=== PATIENT | male | born 1985 | race Hispanic/Latino ===

== ENCOUNTER 2017-07-27 20:47 | Emergency (ER) | payer SELFPAY ==
[2017-07-27] MEDS ORDERED: GENTAMICIN 0.3% OPTH DROP 5ML ONE (21:45)
[2017-07-27] MEDS ORDERED: TETRACAINE HCL 0.5% 2ML OPTH ONE (21:45)
[2017-07-27] MEDS ORDERED: FLUORESCEIN SODIUM 0.6 MG/WRAP ONE (21:45)
--- NOTE | 2017-07-27 22:26 | EDPHYS ---
Physician Documentation [facility] Name: Sid Felton Age: 31 yrs Sex: Male : 1985 Arrival Date: 07/27/2017 Time: 20:47 Bed 9 Private MD: ED Physician Austin Dias HPI: 07/27 21:45 This 31 yrs old Male presents to ER via Ambulatory with complaints of Eye cp Problem, Redness of Eye. 21:45 The patient is experiencing matting or discharge, pain, redness, to both eyes. Onset: cp The symptoms/episode began/occurred 3 day(s) ago. 21:45 Duration: the symptoms are continuous. Associated signs and symptoms: Pertinent cp positives: sorethroat. 21:45 Patient does not utilize any form of vision correction. Severity of symptoms: in the cp emergency department the symptoms are unchanged. Patient reports he has been using OTC clear eyes and taking Amoxicillin for sore throat. Historical: - Allergies: 21:06 No Known Allergies; bb - Home Meds: 21:06 None [Active]; bb - PMHx: 21:06 Asthma; bb - PSHx: 21:06 None; bb - Immunization history:: Adult Immunizations up to date. - Social history:: Smoking status: Patient uses tobacco products, denies chronic smoking, but will smoke occasionally, Patient uses street drugs, marijuana, Patient/guardian denies using alcohol. - Ebola Screening: : No symptoms or risks identified at this time. ROS: 21:50 Constitutional: Negative for body aches, chills, fever, poor PO intake. cp 21:50 Eyes: Positive for discharge, redness, Negative for foreign body sensation, visual cp disturbance. 21:50 ENT: Positive for sore throat, Negative for drainage from ear(s), ear pain, rhinorrhea, difficulty swallowing, difficulty handling secretions. 21:50 Neck: Negative for pain with movement, pain at rest, stiffness, swollen nodes, bony tenderness. 21:50 Cardiovascular: Negative for chest pain, edema, palpitations. 21:50 Respiratory: Negative for cough, shortness of breath, wheezing. 21:50 Abdomen/GI: Negative for abdominal pain, nausea, vomiting, and diarrhea, constipation. 21:50 Skin: Negative for cellulitis, rash. 21:50 Neuro: Negative for altered mental status, headache, weakness. 21:50 All other systems are negative. Exam: 22:00 Constitutional: The patient appears in no acute distress, alert, awake, non-toxic, well cp developed, well nourished. 22:00 Head/Face: Normocephalic, atraumatic. cp 22:00 Eyes: Periorbital structures: appear normal, Pupils: equal, round, and reactive to light and accomodation, Extraocular movements: intact throughout, Conjunctiva: injected, bilaterally, Corneas: abrasion, is not appreciated, foreign body, is not appreciated, a fluorescein strip employed to appreciate the findings, Lids and lashes: drainage, from the left eye, edema, is not appreciated. 22:00 ENT: External ear(s): are unremarkable, Ear canal(s): are normal, clear, TM's: bulging, is not appreciated, bilaterally, dullness, bilaterally, erythema, is not appreciated, bilaterally, Nose: is normal, Mouth: Lips: moist, Oral mucosa: moist, Posterior pharynx: Airway: no evidence of obstruction, patent, Tonsils: no enlargement, no exudate, Uvula: midline, swelling, is not appreciated, erythema, that is mild, Voice: is normal. 22:00 Neck: ROM/movement: is normal, is supple, without pain, no range of motions limitations, no meningismus, no nuchal rigidity, Lymph nodes: no appreciated lymphadenopathy. 22:00 Chest/axilla: Inspection: normal, Palpation: is normal, no crepitus, no tenderness. 22:00 Cardiovascular: Rate: tachycardic, Rhythm: regular. 22:00 Respiratory: the patient does not display signs of respiratory distress, Respirations: normal, no use of accessory muscles, no retractions, no splinting, no tachypnea, labored breathing, is not present, Breath sounds: are clear throughout, no decreased breath sounds, no stridor, no wheezing. 22:00 Abdomen/GI: Exam negative for discomfort, distension, guarding, Inspection: abdomen appears normal. 22:00 Skin: cellulitis, is not appreciated, no rash present. Vital Signs: 21:06 BP 161 / 84; Pulse 111; Resp 18 S; Temp 96.6(O); Pulse Ox 97% on R/A; Weight 108.86 kg bb (R); Height 5 ft. 8 in. (172.72 cm) (R); Pain 8/10; 21:06 Body Mass Index 36.49 (108.86 kg, 172.72 cm) bb Visual Acuity: 21:06 Left Eye Visual acuity 20/40, Pupil size 4 mm, ; Right Eye Visual acuity 20/30, Pupil bb size 4 mm, ; Both Eyes Visual acuity 20/30; Without Lenses; MDM: 21:31 Patient medically screened. cp 22:00 Differential diagnosis: Corneal abrasion of Corneal ulcer of Foreign body in Acute cp iritis of 22:25 Data reviewed: vital signs, nurses notes. cp 22:25 Counseling: I had a detailed discussion with the patient and/or guardian regarding: the cp historical points, exam findings, and any diagnostic results supporting the discharge/admit diagnosis, the need for outpatient follow up, an opthalmologist, to return to the emergency department if symptoms worsen or persist or if there are any questions or concerns that arise at home. Response to treatment: the patient's symptoms have mildly improved after treatment, and as a result, I will discharge patient. 07/27 21:39 Order name: Visual Acuity; Complete Time: 21:40 cp 07/27 21:39 Order name: Eye Tray; Complete Time: 21:47 cp 07/27 21:39 Order name: Fluoresene Opth strip; Complete Time: 21:47 cp Administered Medications: 21:47 Drug: Tetracaine Drops 0.5 % 1 drops Route: Ophthalmic; Site: both eyes; ea 22:34 Follow up: Response: No adverse reaction bb 22:32 Drug: Gentamicin Drops 0.3 % 2 drops Route: Ophthalmic; Site: both eyes; bb 22:34 Follow up: Response: No adverse reaction bb Disposition: 23:00 Chart complete. cp 07/28 08:00 Co-signature as Attending Physician, Austin Dias MD Available for consultation at ps1 all times.. Disposition: 07/27/17 22:26 Discharged to Home. Impression: Conjunctivitis - Bilateral, Acute pharyngitis. - Condition is Stable. - Discharge Instructions: Conjunctivitis (Viral and Bacterial), Pharyngitis. - Prescriptions for Amoxicillin 875 mg Oral Tablet - take 1 tablet by ORAL route every 12 hours for 10 days; 20 tablet. Gentamicin 0.3 % Ophthalmic Drops - instill 1 drop by OPHTHALMIC route every 4 hours for 7 days instill drops every 4 hours while awake; 1 bottle. - Medication Reconciliation Form, Thank You Letter, Antibiotic Education, Prescription Opioid Use form. - Follow up: Froy Lemus MD; When: 48 Hours; Reason: Recheck today's complaints. - Problem is new. - Symptoms have improved. Signatures: Monik Blount RN RN bb Isidro Humphreys PA PA cp Antunez, Elena, RN RN Austin Aden MD MD ps1 Corrections: (The following items were deleted from the chart) 07/27 22:35 22:26 07/27/2017 22:26 Discharged to Home. Impression: Conjunctivitis - Bilateral; bb Acute pharyngitis. Condition is Stable. Forms are Medication Reconciliation Form, Thank You Letter, Antibiotic Education, Prescription Opioid Use. Follow up: Froy Lemus; When: 48 Hours; Reason: Recheck today's complaints. Problem is new. Symptoms have improved. cp
--- NOTE | 2017-07-27 22:26 | ER ---
Nurse's Notes [facility] Name: Sid Felton Age: 31 yrs Sex: Male : 1985 Arrival Date: 07/27/2017 Time: 20:47 Bed 9 Private MD: Diagnosis: Conjunctivitis-Bilateral;Acute pharyngitis Presentation: 07/27 20:59 Presenting complaint: Patient states: he has been having redness to bilateral eyes x 4 bb days his son was recently diagnosed with some bacterial eye infection, pt was using some of his drops but his eyes are not getting any better. Transition of care: patient was not received from another setting of care. Onset of symptoms was July 23, 2017. Risk Assessment: Do you want to hurt yourself or someone else? Patient reports no desire to harm self or others. Initial Sepsis Screen: Does the patient meet any 2 criteria? No. Patient's initial sepsis screen is negative. Does the patient have a suspected source of infection? No. Patient's initial sepsis screen is negative. Care prior to arrival: None. 20:59 Method Of Arrival: Ambulatory bb 20:59 Acuity: PARAM 4 bb Historical: - Allergies: 21:06 No Known Allergies; bb - Home Meds: 21:06 None [Active]; bb - PMHx: 21:06 Asthma; bb - PSHx: 21:06 None; bb - Immunization history:: Adult Immunizations up to date. - Social history:: Smoking status: Patient uses tobacco products, denies chronic smoking, but will smoke occasionally, Patient uses street drugs, marijuana, Patient/guardian denies using alcohol. - Ebola Screening: : No symptoms or risks identified at this time. Screenin:13 Abuse screen: Denies threats or abuse. Nutritional screening: No deficits noted. ea Tuberculosis screening: No symptoms or risk factors identified. Fall Risk None identified. Assessment: 21:10 General: Appears uncomfortable, Behavior is appropriate for age. Pain: Complains of ea pain in right eye and left eye Quality of pain is described as burning. Neuro: Level of Consciousness is awake, alert, obeys commands, Oriented to person, place, time, situation. Cardiovascular: Patient's skin is warm and dry. Respiratory: Airway is patent Respiratory effort is even, unlabored, Respiratory pattern is regular, symmetrical. GI: No signs and/or symptoms were reported involving the gastrointestinal system. : No signs and/or symptoms were reported regarding the genitourinary system. EENT: Eyes are tearing on outer aspect of conjuctiva of right eye, inner aspect of conjuctiva of right eye, outer aspect of conjuctiva of left eye and inner aspect of conjunctiva of left eye Sclera/Cornea are reddened in outer aspect of conjuctiva of right eye, inner aspect of conjuctiva of right eye, outer aspect of conjuctiva of left eye and inner aspect of conjunctiva of left eye Reports blurred vision Pt reports reji blurred peripheral vision. Derm: Skin is dry, Skin is normal, Skin temperature is warm. Musculoskeletal: Circulation, motion, and sensation intact. 22:33 Reassessment: Patient is alert, oriented x 3, equal unlabored respirations, skin bb warm/dry/pink. pt verbalized understanding of and agrees to plan of care discharge instructions given pt ambulated with steady gait to exit. Vital Signs: 21:06 BP 161 / 84; Pulse 111; Resp 18 S; Temp 96.6(O); Pulse Ox 97% on R/A; Weight 108.86 kg bb (R); Height 5 ft. 8 in. (172.72 cm) (R); Pain 8/10; 21:06 Body Mass Index 36.49 (108.86 kg, 172.72 cm) bb Visual Acuity: 21:06 Left Eye Visual acuity 20/40, Pupil size 4 mm, ; Right Eye Visual acuity 20/30, Pupil bb size 4 mm, ; Both Eyes Visual acuity 20/30; Without Lenses; ED Course: 20:47 Patient arrived in ED. ds1 21:05 Triage completed. bb 21:06 Arm band placed on Patient placed in an exam room, on a stretcher. bb 21:08 Bia Davison, ROGE is Primary Nurse. ea 21:13 Patient has correct armband on for positive identification. Call light in reach. ea 21:31 Isidro Humphreys PA is PHCP. cp 21:31 Austin Dias MD is Attending Physician. cp 22:24 Froy Lemus MD is Referral Physician. cp 22:34 No provider procedures requiring assistance completed. Patient did not have IV access bb during this emergency room visit. Administered Medications: 21:47 Drug: Tetracaine Drops 0.5 % 1 drops Route: Ophthalmic; Site: both eyes; ea 22:34 Follow up: Response: No adverse reaction bb 22:32 Drug: Gentamicin Drops 0.3 % 2 drops Route: Ophthalmic; Site: both eyes; bb 22:34 Follow up: Response: No adverse reaction bb Outcome: 22:26 Discharge ordered by MD. cp 22:34 Discharged to home ambulatory. bb 22:34 Condition: stable 22:34 Discharge instructions given to patient, Instructed on discharge instructions, follow up and referral plans. medication usage, Demonstrated understanding of instructions, follow-up care, medications, Prescriptions given X 2. 22:35 Patient left the ED. bb Signatures: Sydney Akers ds1 Monik Blount RN RN bb Isidro Humphreys PA PA cp Antunez, Elena, RN RN ea Corrections: (The following items were deleted from the chart) 21:13 21:10 EENT: Eyes are tearing on outer aspect of conjuctiva of right eye, inner aspect ea of conjuctiva of right eye, outer aspect of conjuctiva of left eye and inner aspect of conjunctiva of left eye Sclera/Cornea are reddened in outer aspect of conjuctiva of right eye, inner aspect of conjuctiva of right eye, outer aspect of conjuctiva of left eye and inner aspect of conjunctiva of left eye ea
== END 2017-07-27 22:35 | disposition home or self-care (01) ==
LOC: ER 20:47
DX: H10.89 Other conjunctivitis (principal); J02.9 Acute pharyngitis, unspecified; J45.909 Unspecified asthma, uncomplicated; Z72.0 Tobacco use
CPT/HCPCS: 99283

== ENCOUNTER 2018-01-11 20:49 | Emergency (ER) | payer SELFPAY ==
--- NOTE | 2018-01-11 22:12 | RAD REPORT ---
EXAM DESCRIPTION: USExtremjuan Venous Uni Ltd01/11/2018 9:57 pm CLINICAL HISTORY: Right leg pain and swelling. COMPARISON: None. FINDINGS: Right common femoral, superficial femoral, popliteal and right posterior tibial veins are compressible and demonstrate augmentation. Doppler demonstrates good flow. IMPRESSION: No evidence of deep venous thrombosis involving the right lower extremity.
[2018-01-11] MEDS ORDERED: CLINDAMYCIN HCL 150 MG CAP ONE (22:52)
[2018-01-11] MEDS ORDERED: KETOROLAC 30 MG/ML INJ ONE (22:52)
[2018-01-11] MEDS ORDERED: VANCOMYCIN 1 GM/250 ML BAG ONE (22:52)
[2018-01-11] MEDS ORDERED: MORPHINE 4 MG/ML SYR ONE (22:57)
[2018-01-11 23:12] LABS: Absolute Lymphocytes (CBC) 3.1 K/uL (0.7-4.9); Absolute Monocytes 0.9 K/uL (0.1-1.3); Absolute Neutrophil 9.6 K/uL (1.8-8.0); Basophils % 0.6 % (0-1.3); Eosinophils % 1.3 % (0-4.4); Hematocrit 47.3 % (39.6-49.0); Lymphocytes % 22.3 % (15.3-44.8); MCH 30.9 pg (27.0-35.0); MCV 88.3 fL (80-100); MPV 9.8 fL (7.6-11.3); Monocytes % 6.7 % (3.3-12.3); RBC Red Blood Cell Count 5.36 M/uL (4.33-5.43)
[2018-01-11 23:28] LABS: Potassium 3.9 mmol/L (3.5-5.1)
--- NOTE | 2018-01-11 23:55 | ER ---
Nurse's Notes [facility] Name: Sid Felton Age: 32 yrs Sex: Male : 1985 Arrival Date: 01/11/2018 Time: 20:52 Bed 13 Private MD: Diagnosis: Cellulitis of right lower limb Presentation: 01/11 20:56 Presenting complaint: Patient states: right lower leg pain with redness and swelling X2 ak1 days. Transition of care: patient was not received from another setting of care. Onset of symptoms is unknown. Risk Assessment: Do you want to hurt yourself or someone else? Patient reports no desire to harm self or others. Initial Sepsis Screen: Does the patient meet any 2 criteria? No. Patient's initial sepsis screen is negative. Does the patient have a suspected source of infection? No. Patient's initial sepsis screen is negative. Care prior to arrival: None. 20:56 Method Of Arrival: Ambulatory ak1 20:56 Acuity: PARAM 4 ak1 Triage Assessment: 20:57 General: Appears uncomfortable, Behavior is calm, cooperative. ak1 Historical: - Allergies: 20:57 No Known Allergies; ak1 - Home Meds: 20:57 None [Active]; ak1 - PMHx: 20:57 Asthma; ak1 - PSHx: 20:57 None; ak1 - Immunization history:: Adult Immunizations unknown. - Social history:: Smoking status: Patient/guardian denies using tobacco. - Ebola Screening: : No symptoms or risks identified at this time. Screenin:58 Abuse screen: Denies threats or abuse. Denies injuries from another. Nutritional ak1 screening: No deficits noted. Tuberculosis screening: No symptoms or risk factors identified. Fall Risk None identified. Assessment: 21:05 Pain: Complains of pain in right leg and anterior aspect of right ankle and right basilio. cc3 22:30 Reassessment: Patient appears in no apparent distress at this time. Patient and/or cc3 family updated on plan of care and expected duration. Pain level reassessed. Patient is alert, oriented x 3, equal unlabored respirations, skin warm/dry/pink. 23:43 Reassessment: Patient appears in no apparent distress at this time. Patient and/or cc3 family updated on plan of care and expected duration. Pain level reassessed. Patient is alert, oriented x 3, equal unlabored respirations, skin warm/dry/pink. 01/12 00:05 Reassessment: Patient appears in no apparent distress at this time. Patient and/or cc3 family updated on plan of care and expected duration. Pain level reassessed. Patient is alert, oriented x 3, equal unlabored respirations, skin warm/dry/pink. COSMETICS DEMONSTRATOR Katina ordered discharge for the patient but after his vancomycin infusion. 01:15 Reassessment: Patient appears in no apparent distress at this time. Patient and/or cc3 family updated on plan of care and expected duration. Pain level reassessed. Patient is alert, oriented x 3, equal unlabored respirations, skin warm/dry/pink. Vancomycin infusion completed, COSMETICS DEMONSTRATOR Katina discharged the patient home with prescriptions given. IV cannula removed and patient left ER vitally stable and ambulatory. Vital Signs: 01/11 20:57 BP 138 / 81; Pulse 108; Resp 18; Temp 99(TE); Pulse Ox 98% on R/A; Weight 102.06 kg ak1 (R); Height 5 ft. 9 in. (175.26 cm) (R); Pain 10/10; 21:45 BP 155 / 82; Pulse 101; Resp 19 S; Pulse Ox 97% on R/A; cc3 22:30 BP 147 / 85; Pulse 101; Resp 18 S; Pulse Ox 97% on R/A; cc3 23:45 BP 146 / 84; Pulse 92; Resp 17 S; Pulse Ox 96% on R/A; cc3 01/12 00:50 BP 143 / 86; Pulse 90; Resp 17 S; Pulse Ox 97% on R/A; cc3 01/11 20:57 Body Mass Index 33.23 (102.06 kg, 175.26 cm) ak1 ED Course: 01/11 20:52 Patient arrived in ED. ds1 20:57 Triage completed. ak1 20:57 Arm band placed on Patient placed in an exam room, on a stretcher, Patient notified of ak1 wait time. 20:58 Patient has correct armband on for positive identification. ak1 21:03 Lucia Wilson is Primary Nurse. cc3 21:06 Katina Phan FNP-C [facility]. snw 21:06 Homer Beckford MD is Attending Physician. snw 21:51 US Extremity Venous Unilateral Ltd In Process Unspecified. EDMS 01/12 00:39 Inserted saline lock: 20 gauge in right antecubital area, using aseptic technique. oe Blood collected. 01:15 No provider procedures requiring assistance completed. IV discontinued, intact, cc3 bleeding controlled, No redness/swelling at site. Pressure dressing applied. Administered Medications: 01/11 22:45 Drug: Clindamycin 300 mg Route: PO; cc3 23:00 Follow up: Response: No adverse reaction cc3 22:55 Drug: TORadol 30 mg Route: IVP; Site: right antecubital; cc3 23:30 Follow up: Response: No adverse reaction; Pain is decreased cc3 23:00 Drug: morphine 4 mg Route: IVP; Site: right antecubital; cc3 23:30 Follow up: Response: No adverse reaction; Pain is decreased cc3 23:05 Drug: vancoMYCIN 1 grams Route: IVPB; Infused Over: 2 hrs; Site: right antecubital; cc3 01/12 01:15 Follow up: Response: No adverse reaction; IV Status: Completed infusion; IV Intake: cc3 250ml Intake: 01:15 IV: 250ml; Total: 250ml. cc3 Outcome: 01/11 23:54 Discharge ordered by . snw 01/12 01:15 Discharged to home ambulatory. cc3 Condition: stable Discharge instructions given to patient, Instructed on discharge instructions, follow up and referral plans. medication usage, Demonstrated understanding of instructions, follow-up care, medications, Prescriptions given X 2. 01:22 Patient left the ED. cc3 Signatures: Dispatcher [employer] EDSC Katina Phan, DIE MAINTENANCE TECHNICIAN-C DIE MAINTENANCE TECHNICIAN-CsnSydney Rubin dsKami Masters, RN RN ak1 Emanuel Martin Charlene cc3
--- NOTE | 2018-01-11 23:55 | EDPHYS ---
Physician Documentation [facility] Name: Sid Felton Age: 32 yrs Sex: Male : 1985 Arrival Date: 01/11/2018 Time: 20:52 Bed 13 Private MD: ED Physician Homer Beckford HPI: 01/11 22:28 This 32 yrs old Male presents to ER via Ambulatory with complaints of Foot snw Swelling -, Leg Swelling. 22:28 The patient presents with swelling, tenderness, erythema. The complaints affect the snw right basilio and anterior aspect of right ankle. Context: The problem was sustained at an unknown site, resulted from an unknown cause, the patient can partially bear weight, with pain, Problem is a result from a previous injury: No. Onset: The symptoms/episode began/occurred suddenly, 3 day(s) ago, and became worse today. Associated signs and symptoms: Pertinent positives: swelling, erythema. Treatment prior to arrival includes: no previous treatment. Severity of symptoms: At their worst the symptoms were moderate. The patient has not experienced similar symptoms in the past. The patient has not recently seen a physician. tetanus up to date. Historical: - Allergies: 20:57 No Known Allergies; ak1 - Home Meds: 20:57 None [Active]; ak1 - PMHx: 20:57 Asthma; ak1 - PSHx: 20:57 None; ak1 - Immunization history:: Adult Immunizations unknown. - Social history:: Smoking status: Patient/guardian denies using tobacco. - Ebola Screening: : No symptoms or risks identified at this time. ROS: 22:27 Constitutional: Negative for fever, chills, and weight loss, Eyes: Negative for injury, snw pain, redness, and discharge, ENT: Negative for injury, pain, and discharge, Neck: Negative for injury, pain, and swelling, Cardiovascular: Negative for chest pain, palpitations, and edema, Respiratory: Negative for shortness of breath, cough, wheezing, and pleuritic chest pain, Abdomen/GI: Negative for abdominal pain, nausea, vomiting, diarrhea, and constipation, Back: Negative for injury and pain, : Negative for injury, bleeding, discharge, and swelling, MS/Extremity: Negative for injury and deformity, Neuro: Negative for headache, weakness, numbness, tingling, and seizure, Psych: Negative for depression, anxiety, suicide ideation, homicidal ideation, and hallucinations. 22:27 Skin: Positive for swelling, tenderness, erythema. Exam: 22:25 Constitutional: This is a well developed, well nourished patient who is awake, alert, snw and in no acute distress. Head/Face: Normocephalic, atraumatic. Eyes: Pupils equal round and reactive to light, extra-ocular motions intact. Lids and lashes normal. Conjunctiva and sclera are non-icteric and not injected. Cornea within normal limits. Periorbital areas with no swelling, redness, or edema. ENT: Nares patent. No nasal discharge, no septal abnormalities noted. Tympanic membranes are normal and external auditory canals are clear. Oropharynx with no redness, swelling, or masses, exudates, or evidence of obstruction, uvula midline. Mucous membranes moist. Neck: Trachea midline, no thyromegaly or masses palpated, and no cervical lymphadenopathy. Supple, full range of motion without nuchal rigidity, or vertebral point tenderness. No Meningismus. Chest/axilla: Normal chest wall appearance and motion. Nontender with no deformity. No lesions are appreciated. Cardiovascular: Regular rate and rhythm with a normal S1 and S2. No gallops, murmurs, or rubs. Normal PMI, no JVD. No pulse deficits. Respiratory: Lungs have equal breath sounds bilaterally, clear to auscultation and percussion. No rales, rhonchi or wheezes noted. No increased work of breathing, no retractions or nasal flaring. Abdomen/GI: Soft, non-tender, with normal bowel sounds. No distension or tympany. No guarding or rebound. No evidence of tenderness throughout. Back: No spinal tenderness. No costovertebral tenderness. Full range of motion. MS/ Extremity: Pulses equal, no cyanosis. Neurovascular intact. Full, normal range of motion. Neuro: Awake and alert, GCS 15, oriented to person, place, time, and situation. Cranial nerves II-XII grossly intact. Motor strength 5/5 in all extremities. Sensory grossly intact. Cerebellar exam normal. Normal gait. Psych: Awake, alert, with orientation to person, place and time. Behavior, mood, and affect are within normal limits. 22:25 Skin: Appearance: normal except for affected area, cellulitis, that is moderate, well demarcated, on the right basilio and anterior aspect of right ankle. Vital Signs: 20:57 BP 138 / 81; Pulse 108; Resp 18; Temp 99(TE); Pulse Ox 98% on R/A; Weight 102.06 kg ak1 (R); Height 5 ft. 9 in. (175.26 cm) (R); Pain 10/10; 21:45 BP 155 / 82; Pulse 101; Resp 19 S; Pulse Ox 97% on R/A; cc3 22:30 BP 147 / 85; Pulse 101; Resp 18 S; Pulse Ox 97% on R/A; cc3 23:45 BP 146 / 84; Pulse 92; Resp 17 S; Pulse Ox 96% on R/A; cc3 01/12 00:50 BP 143 / 86; Pulse 90; Resp 17 S; Pulse Ox 97% on R/A; cc3 01/11 20:57 Body Mass Index 33.23 (102.06 kg, 175.26 cm) ak1 MDM: 01/11 21:11 Patient medically screened. snw 01/12 00:09 Data reviewed: vital signs, nurses notes, lab test result(s), radiologic studies, snw ultrasound. Data interpreted: Pulse oximetry: on room air is 96 %. Interpretation: acceptable. Counseling: I had a detailed discussion with the patient and/or guardian regarding: the historical points, exam findings, and any diagnostic results supporting the discharge/admit diagnosis, the presence of at least one elevated blood pressure reading (>120/80) during this emergency department visit, lab results, radiology results, the need for outpatient follow up, to return to the emergency department if symptoms worsen or persist or if there are any questions or concerns that arise at home. Special discussion: I have referred the patient to see his PCP for further evaluation of high blood pressure. Based on the history and exam findings, there is no indication for further emergent testing or inpatient evaluation. 01/11 22:27 Order name: CBC with Diff; Complete Time: 23:48 snw 01/11 22:27 Order name: Chem 7; Complete Time: 23:48 snw 01/11 21:07 Order name: US Extremity Venous Unilateral Ltd; Complete Time: 22:16 snw 01/11 22:27 Order name: Blood Culture Adult (2) snw 01/11 22:27 Order name: Lactate; Complete Time: 23:48 snw 01/11 22:27 Order name: Procalcitonin; Complete Time: 01:06 snw 01/11 22:27 Order name: SL; Complete Time: 23:47 snw Administered Medications: 01/11 22:45 Drug: Clindamycin 300 mg Route: PO; cc3 23:00 Follow up: Response: No adverse reaction cc3 22:55 Drug: TORadol 30 mg Route: IVP; Site: right antecubital; cc3 23:30 Follow up: Response: No adverse reaction; Pain is decreased cc3 23:00 Drug: morphine 4 mg Route: IVP; Site: right antecubital; cc3 23:30 Follow up: Response: No adverse reaction; Pain is decreased cc3 23:05 Drug: vancoMYCIN 1 grams Route: IVPB; Infused Over: 2 hrs; Site: right antecubital; cc3 01/12 01:15 Follow up: Response: No adverse reaction; IV Status: Completed infusion; IV Intake: cc3 250ml Disposition: 01/11/18 23:54 Discharged to Home. Impression: Cellulitis of right lower limb. - Condition is Stable. - Discharge Instructions: Cellulitis, Adult, Hypertension, Heat Therapy. - Prescriptions for Clindamycin HCl 300 mg Oral Capsule - take 1 capsule by ORAL route every 6 hours for 10 days; 40 capsule. Diclofenac Sodium 75 mg Oral Tablet Sustained Release - take 1 tablet by ORAL route 2 times per day; 30 tablet. - Work release form, Medication Reconciliation Form, Thank You Letter, Antibiotic Education, Prescription Opioid Use form. - Follow up: Private Physician; When: 2 - 3 days; Reason: Recheck today's complaints, Continuance of care, Re-evaluation by your physician. Follow up: Emergency Department; When: As needed; Reason: Worsening of condition. Addendum: 01/13/2018 19:13 Co-signature as Attending Physician, Homer Beckford MD. g s Signatures: Dispatcher [employer] EDMS Katina Phan, KRISHAN-C BUS PERSON-Csnw Kami Brooks, RN RN ak1 Homer Beckford MD MD gs Cordel, Charlene cc3 Corrections: (The following items were deleted from the chart) 01/12 01:22 01/11 23:54 01/11/2018 23:54 Discharged to Home. Impression: Cellulitis of right lower cc3 limb. Condition is Stable. Forms are Medication Reconciliation Form, Thank You Letter, Antibiotic Education, Prescription Opioid Use. Follow up: Private Physician; When: 2 - 3 days; Reason: Recheck today's complaints, Continuance of care, Re-evaluation by your physician. Follow up: Emergency Department; When: As needed; Reason: Worsening of condition. snw
== END 2018-01-12 01:22 | disposition home or self-care (01) ==
LOC: ER 20:49
DX: L03.115 Cellulitis of right lower limb (principal)
CPT/HCPCS: 36415; 80048; 83605; 84145; 85025; 87040; 93971; 96365; 96366; 96375; 99284; J3370

== ENCOUNTER 2023-11-30 22:14 | Emergency (ER) | payer SELFPAY ==
--- NOTE | 2023-11-30 22:35 | EDPHYS ---
Physician Documentation [facility] Name: Sid Felton Age: 37 yrs Sex: Male : 1985 Arrival Date: 11/30/2023 Time: 22:14 Bed IW2 Private MD: ED Physician Shreyas Toth HPI: 11/29 23:13 This 37 yrs old Male presents to ER via Unassigned with complaints of Toe kb Injury. 23:13 Pt is a 37 year old male who presents for ingrown nail that he tried to remove at home kb last night. States it is red, swollen, draining and painful today so he came in for evaluation. Denies fever. . ROS: 23:13 Constitutional: As per HPI kb Exam: 23:13 Constitutional: This is a well developed, well nourished patient who is awake, alert, kb and in no acute distress. Head/Face: Normocephalic, atraumatic. ENT: Moist Mucous membranes Cardiovascular: Regular rate Respiratory: Respirations even and unlabored. No increased work of breathing. Talking in full sentences Neuro: Awake and alert, GCS 15, oriented to person, place, time, and situation. 23:13 Musculoskeletal/extremity: Nails: ingrown nail and paronychia to right great toe, MDM: 22:20 Medical Screening Exam initiated kb 23:13 Differential diagnosis: ingrown nail, paronychia, abscess, cellulitis. Data reviewed: kb vital signs, nurses notes. Counseling: I had a detailed discussion with the patient and/or guardian regarding the historical points, exam findings, and any diagnostic results supporting the discharge/admit diagnosis, the need for outpatient follow up, a business employment specialist, to return to the emergency department if symptoms worsen or persist or if there are any questions or concerns that arise at home. ED course: Pt educated on need for antibiotics and follow up with podiatry. Educated on warm compresses/soaks for drainage. Verbal understanding received. I went to the lobby to talk to another patient and pt stormed out of triage upset that his ingrown nail was not going to be removed tonight and states he doesn't want any other treatment. . Administered Medications: 23:06 Not Given (Patient Eloped): hydrocodone-acetaminophen(7.5 mg-325 mg) 1 tabs PO once lg3 23:07 Not Given (Patient Eloped): trimethoprim-sulfamethoxazole(160 mg-800 mg (ds) 1 tablet lg3 PO once Disposition: 11/30 04:56 Co-signature as Attending Physician, Shreyas Toth MD I agree with the assessment sp4 and plan of care. I reviewed the patient's care provided by the Advanced Practice Provider and agree with the diagnosis and treatment plan. Disposition Summary: 11/30/23 22:34 Discharge Ordered Notes: Location: Home kb Condition: Stable kb Diagnosis - Ingrowing nail kb - Paronychia kb Followup: kb - With: Emergency Department - When: As needed - Reason: Worsening of condition Followup: kb - With: Private Physician - When: 2 - 3 days - Reason: Recheck today's complaints, Continuance of care, Re-evaluation by your physician Discharge Instructions: - Discharge Summary Sheet kb - Ingrown Toenail kb - Paronychia, [id number] kb Forms: - Medication Reconciliation Form kb - Antibiotic Education kb - Prescription Opioid Use kb - Patient Portal Instructions kb - Leadership Thank You Letter kb Prescriptions: - Bactrim DS 800-160 mg Oral Tablet - take 1 tablet ORAL route every 12 hours for 10 days; 20 tablet; Refills: 0, kb Product Selection Permitted Signatures: Tanya Barrett FNP-C FNP-Ckb Able, Lacie, RN RN lg3 Shreyas Toth MD MD sp4
--- NOTE | 2023-11-30 23:09 | ER ---
Nurse's Notes [facility] Name: Sid Felton Age: 37 yrs Sex: Male : 1985 Arrival Date: 11/30/2023 Time: 22:14 Bed IW2 Private MD: Diagnosis: Ingrowing nail;Paronychia Presentation: 11/29 22:34 Note pt seen by provider prior to triage. per provider, PT upset with plan of care and lg3 left ED. ED Course: 22:18 Patient arrived in ED. gm2 22:20 Tanya Barrett FNP-C is PHCP. kb 22:20 Shreyas Toth MD is Attending Physician. kb 23:07 Patient did not have IV access during this emergency room visit. lg3 Administered Medications: 23:06 Not Given (Patient Eloped): hydrocodone-acetaminophen(7.5 mg-325 mg) 1 tabs PO once lg3 23:07 Not Given (Patient Eloped): trimethoprim-sulfamethoxazole(160 mg-800 mg (ds) 1 tablet lg3 PO once Outcome: 22:34 Discharge ordered by MD. kb 23:08 Discharged to Unknown lg3 23:08 Condition: stable 23:08 Discharge instructions given to pt left prior to DC paperwork 23:09 Patient left the ED. lg3 Signatures: Tanya Barrett FNP-C FNP-Ckb Able, Lacie, RN RN lg3 Edwige Pepe gm2
== END 2023-11-30 23:09 | disposition home or self-care (01) ==
LOC: ER 22:14
DX: L60.0 Ingrowing nail (principal); L03.031 Cellulitis of right toe
CPT/HCPCS: 99282

== ENCOUNTER 2024-03-28 17:10 | Emergency (ER) | payer SELFPAY ==
[2024-03-28] MEDS ORDERED: ACETAMINOPHEN 325 MG TABLET ONE (17:48)
[2024-03-28 17:59] LABS: Absolute Basophils 0.1 K/uL (0-0.5); Absolute Eosinophils 0.4 K/uL (0-0.5); Absolute Lymphocytes (CBC) 1.6 K/uL (0.7-4.9); Absolute Monocytes 0.7 K/uL (0.1-1.3); Absolute Neutrophil 8.9 K/uL (1.8-8.0); Basophils % 0.6 % (0-1.3); Hematocrit 47.5 % (39.6-49.0); Hemoglobin 16.6 g/dL (13.6-17.9); MCH 30.1 pg (27.0-35.0); MCV 85.9 fL (80-100); MPV 8.8 fL (7.6-11.3); Monocytes % 5.7 % (3.3-12.3); Neutrophils % 76.7 % (41.7-73.7); Nucleated Red Blood Cells % 0.1 % (0-0); Platelets 217 thou/uL (152-406); RBC Red Blood Cell Count 5.52 M/uL (4.33-5.43)
[2024-03-28 18:15] LABS: Albumin 3.7 g/dL (3.4-5.0); Albumin/Globulin Ratio 0.9 (1.1-1.8); Anion Gap 9.8 mEq/L (5.0-15.0); Bilirubin Direct 0.2 mg/dL (0-0.2); Bilirubin Indirect, Calculated 1.4 mg/dL (0.2-0.8); Bilirubin Total 1.6 mg/dL (0.2-1.0); Potassium 3.8 mEq/L (3.5-5.1); Protein, Total 7.7 g/dL (6.4-8.2)
--- NOTE | 2024-03-28 18:36 | RAD REPORT ---
EXAM: Chest Single View HISTORY: cough COMPARISON: 03/13/2021 FINDINGS: LUNGS/PLEURA: The lungs are clear. No pleural effusions or pneumothorax. No pulmonary edema. MEDIASTINUM: The mediastinal silhouette is within normal limits. CARDIAC: The cardiac silhouette is within normal limits. UPPER ABDOMEN: No significant abnormality. BONES: No acute abnormality. LINES/TUBES/OTHER: N/A IMPRESSION: No evidence of acute cardiopulmonary disease.
[2024-03-28 18:44] LABS: SARS-CoV-2 Antigen CONTROL BLUE LINE VIS/BG OK; SARS-CoV-2 Antigen Rapid Res Negative (Negative)
--- NOTE | 2024-03-28 19:55 | EDPHYS ---
Physician Documentation [facility] Name: Sid Felton Age: 38 yrs Sex: Male : 1985 Arrival Date: 03/28/2024 Time: 17:10 Bed 8 Private MD: ED Physician Boubacar Palomino HPI: 03/28 18:37 This 38 yrs old Male presents to ER via Unassigned with complaints of cough, sp3 body aches. 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 Possible sick contacts reported. Patient denies prolonged immobilization or travel history. He denies chest pain, back pain, bleeding, severe headache, changes in vision, neurological complaints, speech changes, or any other signs or symptoms on ROS at this time. Patient does say that he watched a measles report on TV and wants to make sure he is okay.. Historical: - Allergies: 18:40 No Known Allergies; ph - PMHx: 18:40 Asthma; Hypertensive disorder; stroke; ph - Immunization history:: Adult Immunizations unknown. - Infectious Disease History:: Denies. - Social history:: Smoking status: Reported history of juuling and/or vaping. ROS: 18:39 Eyes: Negative for injury, pain, redness, and discharge, Neck: Negative for injury, sp3 pain, and swelling, Cardiovascular: Negative for chest pain, palpitations, and edema, Back: Negative for injury and pain, MS/Extremity: Negative for injury and deformity, Skin: Negative for injury, rash, and discoloration, Neuro: Negative for headache, weakness, numbness, tingling, and seizure, Psych: Negative for depression, anxiety, suicide ideation, homicidal ideation, and hallucinations, Allergy/Immunology: Negative for hives, rash, and allergies, Endocrine: Negative for neck swelling, polydipsia, polyuria, polyphagia, and marked weight changes, Hematologic/Lymphatic: Negative for swollen nodes, abnormal bleeding, and unusual bruising, 18:39 All other systems are negative, Exam: 18:39 Constitutional: This is a well developed, well nourished patient who is awake, alert, sp3 and in no acute distress. Head/Face: Normocephalic, atraumatic. Eyes: Pupils equal round and reactive to light, extra-ocular motions intact. Lids and lashes normal. Conjunctiva and sclera are non-icteric and not injected. Cornea within normal limits. Periorbital areas with no swelling, redness, or edema. ENT: Nares patent. No nasal discharge, no septal abnormalities noted. External auditory canals are clear. Oropharynx with no redness, swelling, or masses, exudates, or evidence of obstruction, uvula midline. Mucous membranes moist. Neck: Trachea midline, no thyromegaly or masses palpated, and no cervical lymphadenopathy. Supple, full range of motion without nuchal rigidity, or vertebral point tenderness. No Meningismus. Chest/axilla: Normal chest wall appearance and motion. Nontender with no deformity. No lesions are appreciated. Cardiovascular: Regular rate and rhythm with a normal S1 and S2. No gallops, murmurs, or rubs. Normal PMI, no JVD. No pulse deficits. Respiratory: Lungs have equal breath sounds bilaterally, clear to auscultation and percussion. No rales, rhonchi or wheezes noted. No increased work of breathing, no retractions or nasal flaring. Abdomen/GI: Soft, non-tender, with normal bowel sounds. No distension or tympany. No guarding or rebound. No evidence of tenderness throughout. Back: No spinal tenderness. No costovertebral tenderness. Full range of motion. Skin: Warm, dry with normal turgor. Normal color with no rashes, no lesions, and no evidence of cellulitis. MS/ Extremity: Pulses equal, no cyanosis. Neurovascular intact. Full, normal range of motion. Neuro: Awake and alert, GCS 15, oriented to person, place, time, and situation. Cranial nerves II-XII grossly intact. Motor strength 5/5 in all extremities. Sensory grossly intact. Cerebellar exam normal. Normal gait. Psych: Awake, alert, with orientation to person, place and time. Behavior, mood, and affect are within normal limits. 18:39 Respiratory: Active cough noted., Vital Signs: 17:50 BP 162 / 89; Pulse 102; Resp 18; Temp 97.6; Pulse Ox 99% on R/A; Weight 108.86 kg; ph Height 5 ft. 9 in. ; 19:56 BP 152 / 84; Pulse 88; Resp 20; Temp 98.8; Pulse Ox 100% on R/A; aa10 17:50 Body Mass Index 35.44 (108.86 kg, 175.26 cm) ph MDM: 18:27 Medical Screening Exam initiated sp3 18:39 Data reviewed: vital signs, nurses notes, lab test result(s), radiologic studies. ED sp3 course: 38-year-old male with URI symptoms and bodyaches. Differential diagnosis includes viral illness, COVID-19, influenza, bronchitis, pneumonia,, among others. I am not highly suspicious of sepsis, shock, CVA, other intracranial pathology, or any other critical process. Will obtain general swabs, chest x-ray and if negative discharge home on inhaler, cough meds and any other indicated medications.. 19:51 ED course: Patient states he is improved including his headache. I have asked him sp3 multiple times with his headache is anything like his last hemorrhagic stroke and he denies it. Pain this time is mainly in the front over his sinuses. Chest x-ray, swabs and labs demonstrate no significant abnormality. We will send him home on Zithromax for sinus infection, Tessalon Perles and albuterol inhaler. I have told him and his significant other that if his headache gets any worse to return for CT scan. At this time they declined getting scanned.. 02 18:26 Order name: CBC with Automated Diff EDMS 03/28 18:26 Order name: Basic Metabolic Panel EDMS 03/28 18:26 Order name: Liver (Hepatic) Function EDMS 03/28 18:26 Order name: Influenza Screen (A ; Complete Time: 19:47 EDMS 03/28 18:26 Order name: SARS-COV-2 Antigen Rapid; Complete Time: 19:47 EDMS 18 18:26 Order name: Chest Single View; Complete Time: 18:41 EDMS Administered Medications: No medications were administered Disposition Summary: 03/28/24 19:54 Discharge Ordered Notes: Location: Home sp3 Condition: Stable sp3 Diagnosis - Sinusitis, upper respiratory infection sp3 Followup: sp3 - With: Private Physician - When: Upon discharge from the Emergency Department - Reason: Continuance of care Discharge Instructions: - Discharge Summary Sheet sp3 - Sinusitis, Adult sp3 - Upper Respiratory Infection, Adult sp3 Forms: - Medication Reconciliation Form sp3 - Antibiotic Education sp3 - Prescription Opioid Use sp3 - Patient Portal Instructions sp3 - Leadership Thank You Letter sp3 Prescriptions: - albuterol sulfate 90 mcg/actuation Inhalation HFA Aerosol Inhaler - inhale 6 inhalation INHALATION route every 2 to 3 hours as needed for shortness sp3 of breath or wheezing; until breathing returns to target peak flow/parameters; 1 Applicator; Refills: 0, Product Selection Permitted - Tessalon Perles 100 mg Oral Capsule - take 1 capsule ORAL route every 8 hours As needed; 15 capsule; Refills: 0, sp3 Product Selection Permitted - Zithromax Z-Romain 250 mg Oral Tablet - take 1 tablet ORAL route as directed for 5 days Day 1 - take two (2) tablets sp3 one time. Day 2, 3, 4 , 5 take one (1) tablet once daily.; 6 tablet; Refills: 0, Product Selection Permitted Signatures: Dispatcher [employer] Sanjuana Perez RN RN ph Patel, Setul, MD MD sp3
--- NOTE | 2024-03-28 19:55 | ER ---
Nurse's Notes [facility] Name: Sid Felton Age: 38 yrs Sex: Male : 1985 Arrival Date: 03/28/2024 Time: 17:10 Bed 8 Private MD: Diagnosis: Sinusitis, upper respiratory infection Presentation: 03/28 17:50 Chief complaint: Patient states: Headache, R arm weakness, fever, and abdominal ph cramping. Initial Sepsis Screen: Does the patient meet any 2 criteria? No. Patient's initial sepsis screen is negative. Does the patient have a suspected source of infection? No. Patient's initial sepsis screen is negative. Risk Assessment: Do you want to hurt yourself or someone else? Patient reports no desire to harm self or others. Onset of symptoms was March 28, 2024. 17:50 Acuity: PARAM 3 ph 18:39 Coronavirus screen: Vaccine status: Patient reports being unvaccinated. Ebola Screen: ph No symptoms or risks identified at this time. 18:39 Method Of Arrival: Ambulatory ph Historical: - Allergies: 18:40 No Known Allergies; ph - PMHx: 18:40 Asthma; Hypertensive disorder; stroke; ph - Immunization history:: Adult Immunizations unknown. - Infectious Disease History:: Denies. - Social history:: Smoking status: Reported history of juuling and/or vaping. Screenin:41 [facility] ED Fall Risk Assessment (Adult) History of falling in the last 3 months, ph including since admission No falls in past 3 months (0 pts) Confusion or Disorientation No (0 pts) Intoxicated or Sedated No (0 pts) Impaired Gait No (0 pts) Mobility Assist Device Used No (0 pt) Altered Elimination No (0 pt) Score/Fall Risk Level 0 - 2 = Low Risk Oriented to surroundings, Maintained a safe environment. Abuse screen: Denies threats or abuse. Denies injuries from another. Nutritional screening: No deficits noted. Nutritional screening: No deficits noted. Tuberculosis screening: No symptoms or risk factors identified. Assessment: 18:41 General: Appears in no apparent distress. Behavior is calm, cooperative, Reports chills ph for fever for. Pain: Complains of pain in headache. Neuro: Level of Consciousness is awake, alert, obeys commands, Oriented to person, place, time, Appropriate for age Reports headache. Cardiovascular: Capillary refill < 3 seconds in bilateral fingers Patient's skin is warm and dry. Respiratory: Airway is patent Respiratory effort is even, unlabored. GI: Reports cramping. GI: Patient currently denies diarrhea, nausea, vomiting. Derm: Skin is pink, warm \T\ dry. Musculoskeletal: Circulation, motion, and sensation intact. Range of motion: intact in all extremities. 20:02 Reassessment: Patient appears in no apparent distress at this time. No changes from aa10 previously documented assessment. Patient and/or family updated on plan of care and expected duration. Pain level reassessed. Patient is alert, oriented x 3, equal unlabored respirations, skin warm/dry/pink. Patient denies pain at this time. Patient states feeling better. Patient states symptoms have improved. Vital Signs: 17:50 BP 162 / 89; Pulse 102; Resp 18; Temp 97.6; Pulse Ox 99% on R/A; Weight 108.86 kg; ph Height 5 ft. 9 in. ; 19:56 BP 152 / 84; Pulse 88; Resp 20; Temp 98.8; Pulse Ox 100% on R/A; aa10 17:50 Body Mass Index 35.44 (108.86 kg, 175.26 cm) ph ED Course: 17:55 Initial lab(s) drawn, by ED staff, sent to lab. COVID swab sent to lab. Flu and/or RSV ph swab sent to lab. Inserted saline lock: 20 gauge in left antecubital area, using aseptic technique. Blood collected. Flushed with 10 mL NS. 18:26 Patient arrived in ED. kb3 18:27 Boubacar Palomino MD is Attending Physician. sp3 18:33 Chest Single View In Process Unspecified. EDMS 18:38 Sanjuana Don, ROGE is Primary Nurse. ph 18:40 Triage completed. ph 18:40 Arm band placed on Patient placed in an exam room, on a stretcher. ph 18:41 No provider procedures requiring assistance completed. ph 18:42 Patient has correct armband on for positive identification. Placed in gown. Bed in low ph position. Call light in reach. Side rails up X 1. Pulse ox on. NIBP on. Door closed. Noise minimized. Warm blanket given. 18:43 SARS-COV-2 Antigen Rapid Sent. ph 18:43 Influenza Screen (A Sent. ph 18:43 CBC with Automated Diff Sent. ph 18:43 Basic Metabolic Panel Sent. ph 18:43 Liver (Hepatic) Function Sent. ph 20:03 Provided Education on: plan of care. aa10 20:03 IV discontinued. aa10 Administered Medications: No medications were administered Medication: 18:41 VIS not applicable for this client. ph Outcome: 19:54 Discharge ordered by . farhana 20:02 Discharged to home ambulatory, aa10 20:02 Condition: good 20:02 Discharge instructions given to patient, Instructed on discharge instructions, Prescriptions given X 3, 20:04 Patient left the ED. aa10 Signatures: Dispatcher [employer] EDMS Sanjuana Don RN RN Boubacar Peter MD MD sp3 Keyanna Yeboah, ROGE RN kb3 Michael Gustafson, RN RN aa10
[2024-03-28 23:28] VITALS: BP 152/84; TEMP 98.8; O2SAT 100
== END 2024-03-28 20:04 | disposition home or self-care (01) ==
LOC: ER 17:10
DX: J32.9 Chronic sinusitis, unspecified (principal); J06.9 Acute upper respiratory infection, unspecified; Z11.52 Encounter for screening for COVID-19
CPT/HCPCS: 36415; 71045; 80048; 80076; 85025; 87804; 87811